=== PATIENT | male | born 1960 | race Two or more races ===

== ENCOUNTER 2018-02-27 08:56 | Emergency (ER) | payer OTHER ==
[2018-02-27] MEDS: IBUPROFEN 600 MG TAB PO (10:20)
[2018-02-27 10:25] LABS: URINE PH (Dip) POC 6.5 (5.0-8.5)
[2018-02-27 10:25] LABS: URINE BLOOD (Dip) POC Negative (NEGATIVE); URINE GLUCOSE (Dip) POC Negative (NEGATIVE); URINE KETONES (Dip) POC Negative (NEGATIVE); URINE LEUKOCYTE EST (Dip) POC 1+ (NEGATIVE); URINE NITRITE (Dip) POC Negative (NEGATIVE); URINE TOTAL PROTEIN POC Negative (NEGATIVE)
== END 2018-02-27 11:31 | disposition home or self-care (01) ==
LOC: FTE 08:56
DX: M54.6 Pain in thoracic spine (principal); Z87.891 Personal history of nicotine dependence
CPT/HCPCS: 81003; 99283